=== PATIENT | male | born 1955 | race Caucasian/White ===

== ENCOUNTER 2021-04-09 12:52 | Emergency (ER) | payer OTHER ==
--- NOTE | 2021-04-09 12:58 | ERPHSYRPT ---
- History of Present Illness Time Seen by Provider: 04/09/21 12:58 Source: patient Exam Limitations: no limitations Physician History: This is a 65-year-old white male who presents with left posterior auricular/submandibular subcutaneous mass that has been present for several years and enlarging. However, he states in the last several days it is increased even to a greater extent. Patient states that he has been smoking or chewing tobacco since age 14 years of age which is 52 years tobacco exposure. Patient denies shortness of breath. Patient denies chest pain. Quality: painful Severity: moderate Location: face, neck Possible Causes: no cause identified Associated Symptoms: sore throat (Left side) Allergies/Adverse Reactions: No Known Drug Allergies Allergy (Unverified 04/09/21 13:09) Travel Risk - International Travel Have you traveled outside of the country in past 3 weeks: No - Coronavirus Screening Are you exhibiting any of the following symptoms?: No Close contact with a COVID-19 positive Pt in past 14-21 Days: No - Review of Systems Constitutional: No Symptoms Eyes: No Symptoms Ears, Nose, & Throat: Painful Swallowing (Left side), Other (Left posterior auricular and submandibular subcutaneous mass) Cardiac: No Symptoms Abdominal/Gastrointestinal: No Symptoms Genitourinary Symptoms: No Symptoms Musculoskeletal: No Symptoms Skin: No Symptoms Neurological: No Symptoms Psychological: No Symptoms Endocrine: No Symptoms Hematologic/Lymphatic: No Symptoms Immunological/Allergic: No Symptoms All Other Systems: Reviewed and Negative - Past Medical History Pertinent Past Medical History: No - Nursing Vital Signs Nursing Vital Signs: Initial Vital Signs Temperature 98.8 F 04/09/21 13:11 Pulse Rate 105 H 04/09/21 13:11 Respiratory Rate 18 04/09/21 13:11 Blood Pressure 166/133 04/09/21 13:11 O2 Sat by Pulse Oximetry 98 04/09/21 13:11 Pain Scale Pain Intensity 4 - Physical Exam General Appearance: no apparent distress, alert, anxiety, thin Eye Exam: PERRL/EOMI, eyes nml inspection Ears, Nose, Throat Exam: normal ENT inspection, other (Left angle of the jaw/posterior auricular ballotable tender mass) Neck Exam: mass, lymphadenopathy, other (See above. 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 Differential includes benign mixed tumor, Alis's tumor, primary parotid carcinoma, non- Hodgkin's lymphoma, parotid felipa metastasis Counseled pt/family regarding: diagnosis, need for follow-up, rad results - Departure Departure Disposition: Home Clinical Impression: Mass of left parotid gland Condition: Stable Critical Care Time: No Additional Instructions: Follow-up with primary care provider/ear nose throat specialist. Call one of the providers from the list. Prescriptions: Hydrocodone/APAP 5/325 [[place] 5/325 mg] 1 each PO Q8H PRN PRN #6 tablet MDD 3 PRN Reason: Pain Ciprofloxacin [Cipro 500 MG] 500 mg PO BID #14 tablet
--- NOTE | 2021-04-09 14:08 | XRAY ---
Indication: Left head/neck mass and pressure 30 years. Multiple contiguous axial images obtained through the neck without contrast. Cutaneous BB placed over region of interest. Left neck cutaneous BB corresponds to a noncalcified heterogeneous left parotid gland mass measuring at least 5.3 x 5.1 x 5.7 cm greatest AP, transverse, and CC projections. Primary differential includes benign mixed tumor, Warthin tumor, primary parotid carcinoma, non-Hodgkin's lymphoma, and parotid felipa metastasis. A few centimeter/subcentimeter cervical lymph nodes bilaterally. Remaining right parotid and submandibular glands are unremarkable. Thyroid gland appears homogeneous. Minimal bilateral carotid calcifications. Supra and infraglottic airway widely patent. Normal epiglottis. Osseous structures intact with mild/moderate C4-C7 degenerative changes and cervical lordotic reversal centered at C5. No suspicious bony lesions. Patient is edentulous. Lung apices demonstrates pulmonary emphysema with subpleural cystic changes. Base of the brain unremarkable. Impression: 1. Large heterogeneous left parotid gland mass as detailed with differential offered above. 2. C4-C7 degenerative changes and lordotic reversal. 3. Pulmonary emphysema with biapical subpleural cystic changes.
[2021-04-09 15:17] VITALS: BP 180/94; PULSE 76; O2SAT 96
== END 2021-04-09 15:17 | disposition home or self-care (01) ==
LOC: ED 12:52
DX: D37.030 Neoplasm of uncertain behavior of the parotid salivary glands (principal); I10 Essential (primary) hypertension; J02.9 Acute pharyngitis, unspecified; Z72.0 Tobacco use; Z79.891 Long term (current) use of opiate analgesic
CPT/HCPCS: 70490; 99283